=== PATIENT | female | born 1940 | race Caucasian/White ===

== ENCOUNTER 2019-05-21 16:24 | Emergency (ER) | payer OTHER ==
[~2019-05-21] VITALS: Ht 162.6 cm; Wt 104.3 kg
[2019-05-21] MEDS ORDERED: HUMALOG100 UNIT/1 (16:44)
== END 2019-05-21 21:11 | disposition home or self-care (01) ==
LOC: ER 16:24
DX: F10.129 Alcohol abuse with intoxication, unspecified (principal); E86.0 Dehydration; R11.2 Nausea with vomiting, unspecified